=== PATIENT | female | born 1945 | race Caucasian/White ===

== ENCOUNTER → 2017-07-26 | Outpatient (CLI) | payer OTHER ==
[~2017-07-26] VITALS: Ht 157.5 cm; Wt 59.0 kg
[~2017-07-26] MED LIST: CALCIUM 600 +1 EA13 PO; CITALOPRAM HBR20 MG PO; HYDROCHLOROTHIA25 MG PO; LOSARTAN POTAS100 MG PO; LOVASTATIN20 MG PO; NABUMETONE750 MG PO
[2017-07-26 10:50] VITALS: BP 177/78
[2017-07-26 11:20] VITALS: BP 177/75
== END | disposition home or self-care (01) ==
LOC: IVINF 10:36
DX: M81.0 Age-related osteoporosis without current pathological fracture (principal)
CPT/HCPCS: 96365; J3489